=== PATIENT | male | born 1945 | race Caucasian/White ===

== ENCOUNTER 2018-12-30 08:46 | Outpatient (CLI) | payer MEDICARE | END 2018-12-30 23:59 | disposition home or self-care (01) | LOC: CFH 08:46 → EDSTATUS 09:00 → CFH 23:59 | PROVIDERS: ATTEND Internal Medicine | DX: I08.8 Other rheumatic multiple valve diseases (principal); I70.0 Atherosclerosis of aorta | CPT/HCPCS: 36415; 76706; 82607; 82728; 82746; 85025; 93306 ==